=== PATIENT | male | born 1955 | race Caucasian/White ===

== ENCOUNTER 2022-04-02 15:01 | Emergency (ER) | payer OTHER ==
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
[2022-04-02 18:05] VITALS: O2SAT 95
[2022-04-02 18:07] VITALS: BP 144/95; PULSE 85
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
== END 2022-04-02 18:11 | disposition home or self-care (01) ==
LOC: ED 15:01
DX: S16.1XXA Strain of muscle, fascia and tendon at neck level, initial encounter (principal); V43.52XA Car driver injured in collision with other type car in traffic accident, initial encounter; I10 Essential (primary) hypertension
CPT/HCPCS: 70450; 71250; 72125; 99285